=== PATIENT | female | born 1970 | race Caucasian/White ===

== ENCOUNTER → 2017-05-02 | Outpatient (CLI) | payer OTHER | END | disposition home or self-care (01) | LOC: LAB 09:47 | PROVIDERS: ATTEND Internal Medicine | DX: Z01.84 Encounter for antibody response examination (principal) | CPT/HCPCS: 36415; 80307; 86480; 86708; 86735; 86762; 86765; 86787; G0480 ==

== ENCOUNTER 2017-11-17 18:04 | Emergency (ER) | payer OTHER ==
[~2017-11-17] VITALS: Ht 167.6 cm; Wt 113.4 kg
[2017-11-17 18:15] VITALS: BP 121/72
[2017-11-17 18:38] LABS: INTERNATIONAL NORMALIZED RATIO 1.04 (0.93-1.1); PROTHROMBIN TIME 10.7 Seconds (9.6-11.5)
[2017-11-17 18:39] LABS: ALANINE AMINOTRANSFERASE 24 U/L (12-78); ALBUMIN 3.7 g/dL (3.4-5.0); ANION GAP 8 mmol/L (5-15); CALCIUM 8.6 mg/dL (8.5-10.1); CHLORIDE 107 mmol/L (98-107); CREATININE 0.84 mg/dL (0.55-1.02)
[2017-11-17 18:42] LABS: ALKALINE PHOSPHATASE 85 U/L (45-117); BILIRUBIN,TOTAL 0.2 mg/dL (0.2-1.0); TOTAL PROTEIN 7.5 g/dL (6.4-8.2)
[2017-11-17 18:53] LABS: BASOPHILS # (AUTO) 0.04 x10^3/uL (0-0.1); BASOPHILS % (AUTO) 1 % (0-1); EOSINOPHILS # (AUTO) 0.15 x10^3/uL (0-0.4); EOSINOPHILS % (AUTO) 2 % (1-7); LYMPHOCYTES # (AUTO) 2.75 x10^3/uL (1-3.4); LYMPHOCYTES % (AUTO) 30 % (22-44); MD NO; MEAN CORPUSCULAR HEMOGLOBIN 30.9 pg (27.0-34.8); MEAN CORPUSCULAR HGB CONC 34.5 g/dL (32.4-35.8); MEAN CORPUSCULAR VOLUME 89.8 fL (80-100); MEAN PLATELET VOLUME 8.9 fL (7.4-10.4); MONOCYTES # (AUTO) 0.53 x10^3/uL (0.2-0.8); MONOCYTES % (AUTO) 6 % (2-9); NEUTROPHILS # (AUTO) 5.77 x10^3/uL (1.8-6.8); NEUTROPHILS % (AUTO) 62 % (42-75); PLATELET COUNT 284 x10^3/uL (130-400); RED CELL DISTRIBUTION WIDTH 12.6 % (9.6-15.2)
== END 2017-11-17 19:48 | disposition home or self-care (01) ==
LOC: ED 19:42
DX: I80.02 Phlebitis and thrombophlebitis of superficial vessels of left lower extremity (principal); I87.2 Venous insufficiency (chronic) (peripheral)
CPT/HCPCS: 36415; 80053; 85025; 85610; 99285

== ENCOUNTER → 2018-02-11 | Outpatient (CLI) | payer OTHER ==
[2018-02-11 09:46] LABS: FREE T4 (FREE THYROXINE) 0.88 ng/dL (0.76-1.46); THYROID STIMULATING HORMONE 1.76 mIU/L (0.358-3.740)
== END | disposition home or self-care (01) ==
LOC: LAB 09:00
PROVIDERS: ATTEND Specialist
DX: I83.812 Varicose veins of left lower extremity with pain (principal); M79.604 Pain in right leg; M79.605 Pain in left leg; R60.0 Localized edema
CPT/HCPCS: 36415; 84439; 84443; 84479

== ENCOUNTER 2019-03-20 08:08 | Emergency (ER) | payer OTHER ==
[2019-03-20 08:12] VITALS: BP 159/88
--- NOTE | 2019-03-20 08:16 | NUR ---
PATIENT ARRIVED TO ED WITH SHORTNESS OF BREATH UNABLE TO COMPLETE SENTENCES WITH CONSTANT STRONG PRODUCTIVE COUGH WITH GREEN PHELGM. PATIENT DIAPROEHTIC AND WARM TO TOUCH. AFEBRILE AT 98.6 THOUGH, SR AT 80 98%ON RA AND 159/88. EKG COMPLETE. PATIENT AOX4 VSS AT THIS TIME WILL CONTINUE TO MONITOR
[2019-03-20] MEDS ORDERED: SODIUM CHLORIDE FLUSH 10ML SYR IVF ONE (08:30)
[2019-03-20] MEDS ORDERED: ALBUTEROL/IPRATROPIUM 2.5MG/0.5MG, 3 ML NPPB ONE ×2 (08:30)
[2019-03-20] MEDS ORDERED: methylPREDNISolone SOD SUCC 125 MG/2 ML IV ONE (08:30)
[2019-03-20] MEDS ORDERED: SODIUM CHLORIDE 0.9% 1,000ML IVBOLUS ONE (08:30)
--- NOTE | 2019-03-20 09:00 | NUR ---
patient resting comfortably vss at this time no needs
[2019-03-20] MEDS ORDERED: methylPREDNISolone SOD SUCC 125 MG/2 ML ONE (09:55)
[2019-03-20 09:59] LABS: BASOPHILS # (AUTO) 0.03 x10^3/uL (0-0.1); BASOPHILS % (AUTO) 0 % (0-1); EOSINOPHILS # (AUTO) 0.29 x10^3/uL (0-0.4); EOSINOPHILS % (AUTO) 2 % (1-7); LYMPHOCYTES # (AUTO) 2.55 x10^3/uL (1-3.4); LYMPHOCYTES % (AUTO) 18 % (22-44); MD NO; MEAN CORPUSCULAR HEMOGLOBIN 31.2 pg (27.0-34.8); MEAN CORPUSCULAR HGB CONC 33.2 g/dL (32.4-35.8); MEAN CORPUSCULAR VOLUME 93.8 fL (80-100); MEAN PLATELET VOLUME 8.7 fL (7.4-10.4); MONOCYTES # (AUTO) 0.63 x10^3/uL (0.2-0.8); MONOCYTES % (AUTO) 4 % (2-9); NEUTROPHILS # (AUTO) 11.07 x10^3/uL (1.8-6.8); NEUTROPHILS % (AUTO) 76 % (42-75); PLATELET COUNT 259 x10^3/uL (130-400); RED BLOOD COUNT 4.31 x10^6/uL (3.82-5.3); RED CELL DISTRIBUTION WIDTH 13.3 % (9.6-15.2)
--- NOTE | 2019-03-20 10:02 | NUR ---
patient receveid solumederol. allergy to prednisone but agrees to take solumederol after speaking with ED MD. patient states allergic reaction to predniose was pyschosis. patient tolerating medicaiton well so far. resting comforatbly waiting for labs to return.
[2019-03-20 10:09] LABS: ALANINE AMINOTRANSFERASE 23 U/L (12-78); ALBUMIN 3.4 g/dL (3.4-5.0); ANION GAP 7 mmol/L (5-15); CALCIUM 8.3 mg/dL (8.5-10.1); CHLORIDE 111 mmol/L (98-107)
[2019-03-20 10:11] LABS: ALKALINE PHOSPHATASE 77 U/L (45-117); BILIRUBIN,TOTAL 0.4 mg/dL (0.2-1.0); TOTAL PROTEIN 7.1 g/dL (6.4-8.2)
== END 2019-03-20 11:26 | disposition home or self-care (01) ==
LOC: ED 10:25
DX: J00 Acute nasopharyngitis [common cold] (principal); R06.00 Dyspnea, unspecified
CPT/HCPCS: 36415; 71046; 80053; 84145; 85025; 85379; 93005; 93970; 94640; 96374; 99284; J2930; J7030; J7620

== ENCOUNTER → 2019-03-28 | Outpatient (CLI) | payer OTHER | END | disposition home or self-care (01) | LOC: RAD 07:48 | PROVIDERS: ATTEND Surgery | DX: Z01.818 Encounter for other preprocedural examination (principal); K44.9 Diaphragmatic hernia without obstruction or gangrene; E66.01 Morbid (severe) obesity due to excess calories | CPT/HCPCS: 74247 ==

== ENCOUNTER 2019-04-30 07:57 | Outpatient (CLI) | payer OTHER ==
[2019-04-30 08:38] LABS: BASOPHILS # (AUTO) 0.02 x10^3/uL (0-0.1); BASOPHILS % (AUTO) 0 % (0-1); EOSINOPHILS # (AUTO) 0.13 x10^3/uL (0-0.4); EOSINOPHILS % (AUTO) 1 % (1-7); LYMPHOCYTES # (AUTO) 2.47 x10^3/uL (1-3.4); LYMPHOCYTES % (AUTO) 28 % (22-44); MD NO; MEAN CORPUSCULAR HGB CONC 33.9 g/dL (32.4-35.8); MEAN CORPUSCULAR VOLUME 91.4 fL (80-100); MEAN PLATELET VOLUME 8.2 fL (7.4-10.4); MONOCYTES # (AUTO) 0.49 x10^3/uL (0.2-0.8); MONOCYTES % (AUTO) 6 % (2-9); NEUTROPHILS # (AUTO) 5.63 x10^3/uL (1.8-6.8); NEUTROPHILS % (AUTO) 65 % (42-75); PLATELET COUNT 328 x10^3/uL (130-400); RED BLOOD COUNT 4.92 x10^6/uL (3.82-5.3); RED CELL DISTRIBUTION WIDTH 13.1 % (9.6-15.2)
[2019-04-30 08:42] LABS: INTERNATIONAL NORMALIZED RATIO 1.11 (0.93-1.1); PROTHROMBIN TIME 11.8 Seconds (9.6-11.5)
[2019-04-30 08:46] LABS: ALBUMIN 3.7 g/dL (3.4-5.0); ANION GAP 6 mmol/L (5-15); CALCIUM 8.6 mg/dL (8.5-10.1); CHLORIDE 107 mmol/L (98-107)
[2019-04-30 08:49] LABS: ALANINE AMINOTRANSFERASE 27 U/L (12-78); ALKALINE PHOSPHATASE 79 U/L (45-117); BILIRUBIN,TOTAL 0.5 mg/dL (0.2-1.0); CREATININE 0.81 mg/dL (0.55-1.02); TOTAL PROTEIN 7.7 g/dL (6.4-8.2)
[2019-05-01] MEDS ORDERED: ASCO500T8 PO (08:40)
[2019-05-01] MEDS ORDERED: PREN1TAB84 PO (08:40)
[2019-05-01] MEDS ORDERED: MELA5TAB14 PO (08:40)
[2019-05-01] MEDS ORDERED: BIOT10TA PO (08:40)
== END 2019-04-30 23:59 | disposition home or self-care (01) ==
LOC: STAR 07:57
PROVIDERS: ATTEND Surgery
DX: Z01.818 Encounter for other preprocedural examination (principal)
CPT/HCPCS: 36415; 80053; 85025; 85610; 85730

== ENCOUNTER 2019-05-05 13:51 | Inpatient (IN) | payer OTHER ==
[~2019-05-05] VITALS: Ht 170.2 cm; Wt 109.3 kg
[~2019-05-05 13:51] MED LIST: ASCO500T8 PO; BIOT10TA PO; MELA5TAB14 PO; PREN1TAB84 PO
[2019-05-05] MEDS ORDERED: LACTATED RINGERS 1,000 ML IV SCH (14:08)
[2019-05-05 14:25] VITALS: BP 128/79
[2019-05-05] MEDS ORDERED: GABAPENTIN 300 MG CAPSULE PO ONE (14:30)
[2019-05-05] MEDS ORDERED: ACETAMINOPHEN 500 MG TABLET PO ONE (14:30)
[2019-05-05] MEDS ORDERED: SCOPOLAMINE PATCH, 1.5MG PATCH.TD72 TD ONE (14:30)
[2019-05-05] MEDS ORDERED: OxyconTIN ER 10 MG TAB.ER PO ONE (14:30)
[2019-05-05 14:57] LABS: HCG UR SG 1.033 (1.003-1.030)
[2019-05-05] MEDS ORDERED: CEFAZOLIN 1,000 MG ONE (14:57)
[2019-05-05] MEDS ORDERED: DEXAMETHASONE 4 MG/ML, 1ML ONE (14:57)
[2019-05-05] MEDS ORDERED: NEOSTIGMINE 1 MG/ML, 10ML ONE (14:57)
[2019-05-05] MEDS ORDERED: GLYCOPYRROLATE 0.2MG/1ML, 5ML ONE (14:57)
[2019-05-05] MEDS ORDERED: SUCCINYLCHOLINE 20 MG/ML, 10ML ONE (14:57)
[2019-05-05] MEDS ORDERED: ROCURONIUM 10MG/ML,5ML ONE (14:57)
[2019-05-05] MEDS ORDERED: ONDANSETRON 2MG/ML, 2ML ONE (14:57)
[2019-05-05] MEDS ORDERED: KETOROLAC 30 MG/1 ML ONE ×2 (14:57→16:09)
[2019-05-05] MEDS ORDERED: PROPOFOL 10 MG/ML, 20ML ONE (14:57)
[2019-05-05] MEDS ORDERED: MEPERIDINE/PF 25MG/ML,1ML IVPush PRN (15:00)
[2019-05-05] MEDS: ACETAMINOPHEN 100 ML IV SCH ×2 (15:00→23:13)
[2019-05-05] MEDS ORDERED: HALOPERIDOL 5 MG/ML IV PRN (15:00)
[2019-05-05] MEDS ORDERED: OXYcodone 5 MG/5 ML ORAL.SOL UDC PO PRN (15:00)
[2019-05-05] MEDS ORDERED: PROMETHAZINE 25 MG/ML, 1ML IV PRN (15:00)
[2019-05-05] MEDS ORDERED: LABETALOL 5MG/ML, 20ML IV PRN (15:00)
[2019-05-05] MEDS ORDERED: hydrALAzine 20 MG/ML, 1ML IV PRN ×2 (15:00→17:00)
[2019-05-05] MEDS ORDERED: HYDROmorphone 2 MG/ML, 1ML IVPush PRN (15:00)
[2019-05-05] MEDS ORDERED: EPINEPHRINE 1 MG/ML, 1ML ONE (15:29)
[2019-05-05] MEDS ORDERED: BUPIVACAINE/PF 0.5% ONE (15:29)
[2019-05-05] MEDS ORDERED: MIDAZOLAM 1 MG/ML, 2ML ONE (15:37)
[2019-05-05] MEDS ORDERED: FENTANYL PF 250 MCG/5ML ONE (15:37)
[2019-05-05] MEDS ORDERED: LIDOCAINE GEL 2%, 5ML ONE (15:39)
[2019-05-05] MEDS ORDERED: METHYLENE BLUE 10 MG/ML 10ML ONE (15:43)
[2019-05-05] MEDS ORDERED: LORazepam 2 MG/ML, 1ML IV PRN (17:00)
[2019-05-05] MEDS ORDERED: PROMETHAZINE 25MG TABLET PO PRN (17:00)
[2019-05-05] MEDS ORDERED: ENALAPRILAT 1.25 MG/ML, 2ML IV PRN (17:00)
[2019-05-05] MEDS ORDERED: ONDANSETRON 2MG/ML, 2ML IVPush PRN (17:00)
[2019-05-05] MEDS ORDERED: DIPHENHYDRAMINE 25 MG CAPSULE PO PRN (17:00)
[2019-05-05] MEDS ORDERED: DIPHENHYDRAMINE 50 MG/ML, 1ML IV PRN (17:00)
[2019-05-05] MEDS ORDERED: FENTANYL PF 100 MCG/2ML ONE (17:22)
[2019-05-05] MEDS ORDERED: OXYcodone 5 MG/5 ML ORAL.SOL UDC ONE (17:23)
[2019-05-05] MEDS: FENTANYL PF 100 MCG/2ML IV PRN ×2 (17:28→17:41)
[2019-05-05] MEDS: HYDROmorphone 1 MG/ML, 1ML INJ IVPush PRN ×2 (18:43→23:13)
[2019-05-05] MEDS: POTASSIUM CHLORIDE 20 MEQ in LACTATED RINGERS 1,000 ML IV SCH (18:43)
[2019-05-05 19:30] VITALS: BP 130/68
[2019-05-05] MEDS: HYDROcodone/APAP 7.5-325MG/15ML UDC PO PRN (21:01)
[2019-05-06] VITALS: BP 124/66
[2019-05-06] MEDS: POTASSIUM CHLORIDE 20 MEQ in LACTATED RINGERS 1,000 ML IV SCH ×3 (01:45→14:44)
[2019-05-06 03:56] VITALS: BP 128/77
[2019-05-06] MEDS: HYDROcodone/APAP 7.5-325MG/15ML UDC PO PRN ×3 (04:22→12:12)
[2019-05-06 07:37] VITALS: BP 118/70
[2019-05-06 08:38] LABS: BASOPHILS # (AUTO) 0.04 x10^3/uL (0-0.1); BASOPHILS % (AUTO) 0 % (0-1); EOSINOPHILS % (AUTO) 0 % (1-7); LYMPHOCYTES # (AUTO) 1.82 x10^3/uL (1-3.4); LYMPHOCYTES % (AUTO) 11 % (22-44); MD NO; MEAN CORPUSCULAR HGB CONC 33.5 g/dL (32.4-35.8); MEAN CORPUSCULAR VOLUME 92.6 fL (80-100); MEAN PLATELET VOLUME 8.6 fL (7.4-10.4); MONOCYTES % (AUTO) 5 % (2-9); NEUTROPHILS # (AUTO) 13.57 x10^3/uL (1.8-6.8); NEUTROPHILS % (AUTO) 84 % (42-75); PLATELET COUNT 317 x10^3/uL (130-400); RED BLOOD COUNT 4.47 x10^6/uL (3.82-5.3); RED CELL DISTRIBUTION WIDTH 13.2 % (9.6-15.2)
[2019-05-06 08:48] LABS: ALANINE AMINOTRANSFERASE 33 U/L (12-78); ALBUMIN 3.4 g/dL (3.4-5.0); ANION GAP 8 mmol/L (5-15); CALCIUM 8.7 mg/dL (8.5-10.1); CHLORIDE 106 mmol/L (98-107)
[2019-05-06 08:51] LABS: ALKALINE PHOSPHATASE 68 U/L (45-117); BILIRUBIN,TOTAL 0.7 mg/dL (0.2-1.0); CREATININE 0.77 mg/dL (0.55-1.02); TOTAL PROTEIN 6.9 g/dL (6.4-8.2)
[2019-05-06] MEDS ORDERED: FAMOTIDINE 20 MG/2 ML IVPush SCH (09:00)
[2019-05-06] MEDS ORDERED: ENOXAPARIN 40 MG/0.4 ML SQ SCH (12:00)
[2019-05-06 13:21] VITALS: BP 131/68
[2019-05-06] MEDS ORDERED: SIMETHICONE 80 MG CHEW TAB PO PRN (15:30)
== END 2019-05-06 16:35 | disposition home or self-care (01) | DRG 621 ==
LOC: ORIP 13:51 → EDSTATUS 16:30 → 4NE 18:11 → DCLOUNGE 05-06 16:28
PROVIDERS: ADMIT Surgery; ATTEND Surgery
PROC: 0BQT4ZZ Repair Diaphragm, Percutaneous Endoscopic Approach (ICD-10-PCS; 2019-05-05)
PROC: 0FB24ZX Excision of Left Lobe Liver, Percutaneous Endoscopic Approach, Diagnostic (ICD-10-PCS; 2019-05-05)
PROC: 0DB64Z3 Excision of Stomach, Percutaneous Endoscopic Approach, Vertical (ICD-10-PCS; principal; 2019-05-05 16:00)
DX: E66.01 Morbid (severe) obesity due to excess calories (principal); K21.9 Gastro-esophageal reflux disease without esophagitis; M19.90 Unspecified osteoarthritis, unspecified site; R73.03 Prediabetes; K76.0 Fatty (change of) liver, not elsewhere classified; K44.9 Diaphragmatic hernia without obstruction or gangrene; Z88.8 Allergy status to other drugs, medicaments and biological substances; Z82.49 Family history of ischemic heart disease and other diseases of the circulatory system; Z83.3 Family history of diabetes mellitus; Z68.37 Body mass index [BMI] 37.0-37.9, adult
CPT/HCPCS: 36415; J3490; S0020; 80053; 81025; 85025; 88307; 88313; G0378; J0131; J0171; J0690; J1100; J1170; J1650; J1885; J2250; J2405; J2704; J2710; J3010; J3480; C1760; J0330; J7120; Q9968

== ENCOUNTER → 2019-11-20 | Outpatient (CLI) | payer OTHER ==
[2019-11-20 12:15] LABS: BASOPHILS # (AUTO) 0.02 x10^3/uL (0-0.1); BASOPHILS % (AUTO) 0 % (0-1); EOSINOPHILS # (AUTO) 0.08 x10^3/uL (0-0.4); EOSINOPHILS % (AUTO) 1 % (1-7); LYMPHOCYTES # (AUTO) 1.95 x10^3/uL (1-3.4); LYMPHOCYTES % (AUTO) 27 % (22-44); MD NO; MEAN CORPUSCULAR HEMOGLOBIN 31.2 pg (27.0-34.8); MEAN CORPUSCULAR HGB CONC 33.8 g/dL (32.4-35.8); MEAN CORPUSCULAR VOLUME 92.3 fL (80-100); MEAN PLATELET VOLUME 8.9 fL (7.4-10.4); MONOCYTES % (AUTO) 4 % (2-9); NEUTROPHILS # (AUTO) 4.87 x10^3/uL (1.8-6.8); NEUTROPHILS % (AUTO) 68 % (42-75); PLATELET COUNT 246 x10^3/uL (130-400); RED CELL DISTRIBUTION WIDTH 12.8 % (9.6-15.2)
[2019-11-20 12:40] LABS: CHLORIDE 111 mmol/L (98-107)
[2019-11-20 13:15] LABS: % IRON SATURATION 52 % (20-55); ALANINE AMINOTRANSFERASE 18 U/L (12-78); ALBUMIN 3.8 g/dL (3.4-5.0); ALKALINE PHOSPHATASE 84 U/L (45-117); ANION GAP 6 mmol/L (5-15); BILIRUBIN,TOTAL 0.6 mg/dL (0.2-1.0); CALCIUM 8.8 mg/dL (8.5-10.1); CHOL/HDL RATIO 3.3; CHOLESTEROL, TOTAL 197 mg/dL (140-239); CREATININE 0.71 mg/dL (0.55-1.02); FOLATE LEVEL 15.7 ng/mL (3.1-17.5); HDL CHOL % 30 % (28-40); HDL CHOLESTEROL (DIRECT) 60 mg/dL (40-60); IRON LEVEL 170 mcg/dL (50-170); LDL CHOLESTEROL,CALCULATED 120 mg/dL (54-169); PREALBUMIN 25.8 mg/dL (20.0-40.0); TOTAL IRON BINDING CAPACITY 327 mcg/dL (250-450); TOTAL PROTEIN 7.1 g/dL (6.4-8.2); TRANSFERRIN 239 mg/dL (200-360); TRIGLYCERIDES 85 mg/dL (50-200); VLDL CHOLESTEROL 17 mg/dL (0-25)
== END | disposition home or self-care (01) ==
LOC: LAB 11:50
PROVIDERS: ATTEND Physician Assistant Medical
DX: Z13.89 Encounter for screening for other disorder (principal); R63.8 Other symptoms and signs concerning food and fluid intake; K21.9 Gastro-esophageal reflux disease without esophagitis; K76.0 Fatty (change of) liver, not elsewhere classified; M19.90 Unspecified osteoarthritis, unspecified site; R73.09 Other abnormal glucose; R32 Unspecified urinary incontinence; E66.9 Obesity, unspecified; Z90.3 Acquired absence of stomach [part of]
CPT/HCPCS: 36415; 80053; 80061; 82306; 82607; 82746; 83036; 83540; 83550; 83970; 84134; 84425; 84466; 85025